=== PATIENT | male | born 1985 | race Caucasian/White ===

== ENCOUNTER → 2017-08-17 | Day surgery (SDC) | payer BC ==
[~2017-08-17] VITALS: Ht 180.3 cm; Wt 69.5 kg
[~2017-08-17] MED LIST: *LABETALOL HCL 100 MG/20 ML VIAL PERIprocedural Use ONLY ONE; *diphenhydrAMINE HCL 50 MG/ML VIAL PERIprocedural Use ONLY ONE; *morphine SULFATE 10 MG/ML PERIprocedure ONLY ONE; ACETAMINOPHEN 1000 MG/100 ML 100 ML IV ONE; ACETAMINOPHEN/HYDROcodone 325 MG/5 MG TAB PO PRN; ALBU.5I INH; ALBU6.7H INH; CHLORHEXIDINE GLUCONATE 2 % 1 PACK (2 CLOTHS) TOPICAL PRN; CLINDAMYCIN 600 MG/NS PREMIX 50 ML IV SCH; DEXAMETHASONE SOD PHOS 4 MG/ML VIAL IV ONE; DO NOT ADM ANY ANTICOAGULANT DRUGS PRN; INSULIN HUMAN REGULAR 1,000 UNITS/10 ML VIAL SQ PRN; LACTATED RINGER'S 1000 ML INJ 1,000 ML IV SCH; LACTATED RINGER'S 1000 ML IV PRN; LIDOCAINE 1%/EPINEPHrine 1:100,000 SOLN 30 ML VIAL ONE; LIDOCAINE HCL 1% PF 5 ML SYRINGE OTHER ONE; METOPROLOL TARTRATE 25 MG TAB PO PRN; MIDAZOLAM HCL 2 MG/2 ML VIAL ONE; MORPHINE SULFATE 4 MG/ML INJ ONE; ONDANSETRON HCL 4 MG/2 ML VIAL IV ONE; OXYMETAZOLINE HCL 0.05% 15 ML NASAL SPRAY ONE; POVIDONE IODINE 5% (ANTISEPSIS KIT) 4 APPLICATIONS EACH NARE PRN; PROPOFOL 200 MG/20 ML AMP IV ONE; PROVENTIL HFA INH; ROCURONIUM INJ 50 MG/5 ML SYRINGE IV PUSH ONE; SODIUM CHLORID 0.9% 500 ML IV PRN; SUGAMMADEX SODIUM 200 MG/2 ML VIAL IV PUSH ONE
[2017-08-17 18:24] VITALS: BP 160/91; PULSE 75; RESP 20; TEMP 98.8; O2SAT 98
--- NOTE | 2017-08-21 17:59 | MP ---
cc: Martin Taylor MD DATE OF OPERATION: 08/17/2017 DATE OF PROCEDURE: 08/17/2017 SURGEON: Martin Taylor MD PREOPERATIVE DIAGNOSIS: 1. Nasal airway obstruction. 2. Nasal septal deviation. 3. Chronic sinus headache. 4. Chronic pansinusitis. POSTOPERATIVE DIAGNOSES: 1. Nasal airway obstruction. 2. Nasal septal deviation. 3. Chronic sinus headache. 4. Chronic pansinusitis. OPERATION PERFORMED: 1. Open repair, nasal septal fracture. 2. Bilateral submucosal resection of inferior turbinates. 3. Bilateral endoscopic total ethmoidectomy. 4. Bilateral endoscopic maxillary antrostomy with removal of maxillary sinus tissue. 5. Bilateral endoscopic exploration of frontal sinus ducts with balloon sinus dilation. 6. Bilateral endoscopic sphenoidotomy with removal of sphenoid sinus tissue. INDICATION FOR PROCEDURE: Documented in the history and physical. DESCRIPTION OF OPERATION: The patient was taken to OR #2 and placed in the supine position. Following induction of general anesthesia and intubation, the nose was packed bilaterally with cotton pledgets saturated in 0.05% oxymetazoline. The nasal septum and inferior turbinates were injected with a total of 8 mL of 1% Xylocaine with epinephrine 1:100,000. He was then prepped and draped for surgery. The nasal packing was removed and a hemitransfixion incision was made in the left nasal vestibule. Through this incision, the septal mucosa was elevated bilaterally as far as the junction of the bony and cartilaginous septum. This exposed the quadrangular cartilage, which showed evidence of old septal fracture with numerous comminuted fragments extending into the nasal airways bilaterally. A cumulative area of 2 x 2.5 cm was removed, preserving 1.5 cm dorsal and caudal cartilaginous struts. When this was completed, the mucosa was elevated from the bony septum and the bony septum was removed with Jasvir-Vogel forceps and a Tawanda septal forceps. The maxillary crest was removed using a 6 mm Margi chisel. The incision was then closed with a running suture of 4-0 chromic and the mucosal layers of septum were approximated to each other with a quilting stitch of 4-0 plain gut. The inferior turbinates were addressed next. They were fractured out medially and stab incisions were opened along their inferior surfaces. Through these incisions the submucosal soft tissue was reduced using a curette and preserving the conchal bone. The incisions were then cauterized using the suction Bovie at 35 urrutia and the remnants of the inferior turbinate were relateralized to the lateral nasal wall. From this point forward the operation was performed using endoscopic visualization with a Storz 0-degree fiberoptic scope. Additional injections of lidocaine and epinephrine were made into the attachments of the middle turbinates and the anterior and posterior ethmoid cells. The left side was addressed first beginning with amputation of the middle turbinate using Thru-Cutting Blakesley forceps and the power microdebrider. Next, the anterior ethmoid cells were exenterated using blunt and power dissection. This was carried back as far as the rostrum of the sphenoid. The specimen labeled left sinus contents. When this was completed, the maxillary ostium was probed, using a 3 mm olive tip suction and the ostium was enlarged using Stammberger forceps. Inflamed mucosa and debris from the cavity were debrided using the Blakesley forceps and irrigation. The sphenoid ostium was addressed next. It was dilated using a #10 suction, enlarged with the powered microdebrider. Contents of the sinus were debrided using blunt dissection. This side was then irrigated and packed with cotton pledgets saturated in oxymetazoline which remained in place while the right side was operated in the same fashion, beginning with amputation of the middle turbinate, followed by exoneration of anterior and posterior ethmoids. Then, by enlargement of the right maxillary ostium with blunt and power dissection and debridement of the maxillary cavity. The sphenoid ostium was enlarged with blunt and power dissection of the cavity was also debrided. This side was then also packed with the cotton pledget saturated in oxymetazoline. These remained in place while the frontal sinus balloon dilations were completed, the left side first. The guidewire was advanced up through the frontal duct and verified to be in the frontal sinus. The balloon was then advanced over the wire and was inflated at 3 levels to a pressure of 12 atmospheres. This was completed superiorly at the midpoint of the duct and at the junction with the ethmoid at the inferior limits. The balloon was then removed and the same technique was performed on the right side. On both sides, the duct was verified patent all the way into the frontal sinus. The packing was then removed. The cavities were irrigated and suctioned. The superior half of the nasal vault and the ethmoid and maxillary sinuses then were filled with Stammberger sinus foam. The inferior half of the nose was filled with 5.5 cm Rapid Rhino packs, each inflated with 5 mL of air and the procedure was terminated. The patient was reversed from anesthesia and taken to recovery in good condition. There were no complications. Blood loss 300 mL. MD NADIA Chisholm/SCOTTY , 02:52 PM , 05:58 PM
== END | disposition home or self-care (01) ==
LOC: HSDC 10:10
PROVIDERS: ATTEND Otolaryngology
DX: J34.2 Deviated nasal septum (principal); J34.3 Hypertrophy of nasal turbinates; J32.4 Chronic pansinusitis; J32.8 Other chronic sinusitis; R51 Headache
CPT/HCPCS: 00160; 21336; 30140; 31259; 31267; 31296; 88305; 88311; J0131; J1100; J1200; J2250; J2270; J2405; J3010; J7120

== ENCOUNTER → 2017-08-24 | Day surgery (SDC) | payer BC ==
[~2017-08-24] VITALS: Ht 180.3 cm; Wt 68.0 kg
[~2017-08-24] MED LIST changes: -*LABETALOL HCL 100 MG/20 ML VIAL PERIprocedural Use ONLY ONE; -*diphenhydrAMINE HCL 50 MG/ML VIAL PERIprocedural Use ONLY ONE; -*morphine SULFATE 10 MG/ML PERIprocedure ONLY ONE; -ACETAMINOPHEN 1000 MG/100 ML 100 ML IV ONE; -ACETAMINOPHEN/HYDROcodone 325 MG/5 MG TAB PO PRN; -ALBU.5I INH; +CLINDAMYCIN 600 MG/NS PREMIX 50 ML IV PRN; -CLINDAMYCIN 600 MG/NS PREMIX 50 ML IV SCH; -DEXAMETHASONE SOD PHOS 4 MG/ML VIAL IV ONE; -DO NOT ADM ANY ANTICOAGULANT DRUGS PRN; +HYDROmorphone HCL PF 2 MG/ML VIAL ONE; -INSULIN HUMAN REGULAR 1,000 UNITS/10 ML VIAL SQ PRN; -LACTATED RINGER'S 1000 ML INJ 1,000 ML IV SCH; +LIDOCAINE 1%/EPINEPHrine 1:100,000 SOLN 20 ML VIAL ONE; -LIDOCAINE 1%/EPINEPHrine 1:100,000 SOLN 30 ML VIAL ONE; -LIDOCAINE HCL 1% PF 5 ML SYRINGE OTHER ONE; +MEPERIDINE HCL 25 MG/ML VIAL ONE; -MORPHINE SULFATE 4 MG/ML INJ ONE; +MORPHINE SULFATE 8 MG/ML INJ ONE; -ONDANSETRON HCL 4 MG/2 ML VIAL IV ONE; -PROPOFOL 200 MG/20 ML AMP IV ONE; -PROVENTIL HFA INH; -ROCURONIUM INJ 50 MG/5 ML SYRINGE IV PUSH ONE; -SUGAMMADEX SODIUM 200 MG/2 ML VIAL IV PUSH ONE
[2017-08-24 13:10] VITALS: BP 136/80; PULSE 72; RESP 15; TEMP 98.7; O2SAT 95
--- NOTE | 2017-09-01 15:00 | MP ---
cc: Martin Taylor MD DATE OF OPERATION: 08/24/2017 SURGEON: Martin Taylor MD PREOPERATIVE DIAGNOSIS: Chronic sinusitis. POSTOPERATIVE DIAGNOSIS: Chronic sinusitis. OPERATION PERFORMED: Bilateral postoperative endoscopic sinus debridement. INDICATIONS: Awais Rebolledo is a 31-year-old man who is 1 week out from endoscopic sinus surgery. He has had a very difficult time with routine postoperative sinus debridements in the office and complaining of severe pain in his face and sinuses. On examination, he is remarkably swollen, and he has terrible pain with instrumentation of his nose and sinuses under topical anesthesia. DESCRIPTION OF OPERATION: The patient was taken to OR #2 and placed in the supine position. Following induction of general anesthesia and intubation, his nose was packed bilaterally with cotton pledgets saturated in 0.05% oxymetazoline. These remained in place for a period of 3 minutes and then were removed. The nose was examined endoscopically, and using a #8 suction and a Nely forceps, the nasal vault and paranasal sinus cavities are debrided of eschar and thick fibrin debris. The sinusotomies are all patent. The maxillary ostium is probed bilaterally using a 3 mm olive tip suction. Thick mucus was evacuated from the left side and thick, dark blood evacuated from the right side maxillary cavity. The 3 mm suction was also advanced into the frontal sinuses. These were evacuated of mucus and Stammberger foam. There was no sign of infection. Nasal vault and cavities were then irrigated with saline, which was evacuated. The nose was then packed once again with cotton pledgets saturated in oxymetazoline. These remained in place as the patient was reversed from anesthesia and taken to recovery in good condition. The packs of the nose were then removed about 1/2 hour after the patient arrived in the recovery room. Blood loss was 60 mL. No complications. MD NADIA Chisholm/ISABEL , 02:48 PM , 03:00 PM
== END | disposition home or self-care (01) ==
LOC: PHSDC 07:18
PROVIDERS: ATTEND Otolaryngology
DX: J32.9 Chronic sinusitis, unspecified (principal); G89.18 Other acute postprocedural pain
CPT/HCPCS: 00160; 31237; J1170; J2175; J2250; J2270; J3010; J7120